=== PATIENT | female | born 1965 | race Caucasian/White ===

== ENCOUNTER 2017-06-21 04:37 | Emergency (ER) | payer OTHER ==
[~2017-06-21] VITALS: Ht 170.2 cm; Wt 73.0 kg
[2017-06-21 04:38] VITALS: TEMP 98.1
[2017-06-21 04:52] VITALS: BP 148/86; PULSE 99; RESP 18; TEMP 98.1; O2SAT 98
[2017-06-21] MEDS ORDERED: PRED5TAB PO ×2 (04:52)
[2017-06-21] MEDS ORDERED: DICL1CAP4 PO (04:52)
[2017-06-21] MEDS ORDERED: NORC5TAB PO (04:52)
[2017-06-21] MEDS ORDERED: NEUR300C PO (04:52)
[2017-06-21] MEDS ORDERED: PROMETHAZINE INJ 25 MG/ML VIAL IM ONE (05:15)
[2017-06-21] MEDS ORDERED: SODIUM CHLOR 0.9% 1000 ML INJ 1,000 ML IV ONE (05:15)
--- NOTE | 2017-06-21 05:19 | PD ---
HPI Chief Complaint: Abdominal Pain Time Seen by Provider: 04:56 Travel History International Travel<30 days: No Contact w/Intl Traveler<30days: No Traveled to known affect area: No History of Present Illness HPI The patient was seen and examined in the presence of the nurse. She complains of nausea and vomiting and diarrhea and abdominal pain. Location of pain is epigastrium. Duration of symptoms is 4 hours. She thinks that she got food poisoning. She thinks she ate some bad salmon. No fever. Symptoms severity is moderate. No alleviating factors. No exacerbating factors. She takes chronic pain medicine but denies withdrawal. Denies alcohol abuse. She has no gallbladder. PFSH Past Medical History Arthritis: Yes Diminished Hearing: No GERD: Yes Hypertension: Yes Tetanus Vaccination: Unknown Influenza Vaccination: No ?: Not Past Surgical History Abdominal Surgery: Yes (MUSCLE REMOVED) Cholecystectomy: Yes Other Surgery: Yes (ASINOVECTOMY LEFT ELBOW/KNEE) Social History Alcohol Use: No Tobacco Use: No Substance Use: No Allergies-Medications (Allergen,Severity, Reaction): Coded Allergies: No Known Allergies (Unverified , 06/21/17) Reported Meds & Prescriptions Reported Meds & Active Scripts Active Reported Neurontin (Gabapentin) 300 Mg Cap 300 Mg PO TID [place] (Hydrocodone-Acetaminophen) 5-325 mg Tab 1 Tab PO Q4H PRN Zorvolex (Diclofenac) 35 Mg Cap 75 Mg PO BID Prednisone 5 Mg Tab 7 Mg PO DAILY Prednisone 5 Mg Tab 5 Mg PO HS Review of Systems General / Constitutional: No: Fever Eyes: No: Visual changes HENT: No: Headaches Cardiovascular: No: Chest Pain or Discomfort Respiratory: No: Shortness of Breath Gastrointestinal: Positive: Nausea, Vomiting, Diarrhea, Abdominal Pain Genitourinary: No: Dysuria Musculoskeletal: Positive: Pain Skin: No Rash Neurologic: No: Weakness Psychiatric: No: Depression Endocrine: No: Polydipsia Hematologic/Lymphatic: No: Easy Bruising Physical Exam Narrative GENERAL: Well-nourished, well-developed patient with nausea . SKIN: Focused skin assessment reveals no rash and nodules. Skin is Warm and dry. HEAD: Atraumatic. Normocephalic. EYES: Pupils equal and round. No scleral icterus. No injection or drainage. ENT: No nasal bleeding or discharge. Mucous membranes pink and moist. NECK: Trachea midline. No JVD. CARDIOVASCULAR: Regular rate and rhythm. No murmur appreciated. RESPIRATORY: No accessory muscle use. Clear to auscultation. Breath sounds equal bilaterally. GASTROINTESTINAL: Abdomen soft, mild epigastric tenderness without rebound or guarding, nondistended. Hepatic and splenic margins not palpable. MUSCULOSKELETAL: No obvious deformities. No clubbing. No cyanosis. No edema. NEUROLOGICAL: Awake and alert. No obvious cranial nerve deficits. Motor grossly within normal limits. Normal speech. PSYCHIATRIC: Appropriate mood and affect; insight and judgment normal. Data Data Last Documented VS Vital Signs Date Time Temp Pulse Resp B/P (MAP) Pulse Ox O2 Delivery O2 Flow Rate FiO2 06/21/17 04:52 98.1 99 18 148/86 (106) 98 Room Air Orders Orders Iv Access Insert/Monitor (06/21/17 05:11) Complete Blood Count With Diff (06/21/17 05:11) Comprehensive Metabolic Panel (06/21/17 05:11) Lipase (06/21/17 05:11) Promethazine Inj (Phenergan Inj) (06/21/17 05:15) Sodium Chlor 0.9% 1000 Ml Inj (Ns 1000 M (06/21/17 05:15) Labs Laboratory Tests Test 06/21/17 05:12 White Blood Count 10.5 TH/MM3 Red Blood Count 4.46 MIL/MM3 Hemoglobin 10.7 GM/DL Hematocrit 35.3 % Mean Corpuscular Volume 79.1 FL Mean Corpuscular Hemoglobin 24.1 PG Mean Corpuscular Hemoglobin Concent 30.5 % Red Cell Distribution Width 18.0 % Platelet Count 334 TH/MM3 Mean Platelet Volume 8.4 FL Neutrophils (%) (Auto) 84.5 % Lymphocytes (%) (Auto) 5.5 % Monocytes (%) (Auto) 7.7 % Eosinophils (%) (Auto) 1.8 % Basophils (%) (Auto) 0.5 % Neutrophils # (Auto) 8.9 TH/MM3 Lymphocytes # (Auto) 0.6 TH/MM3 Monocytes # (Auto) 0.8 TH/MM3 Eosinophils # (Auto) 0.2 TH/MM3 Basophils # (Auto) 0.0 TH/MM3 CBC Comment DIFF FINAL Differential Comment Blood Urea Nitrogen 14 MG/DL Creatinine 0.71 MG/DL Random Glucose 91 MG/DL Total Protein 6.4 GM/DL Albumin 3.2 GM/DL Calcium Level 8.4 MG/DL Alkaline Phosphatase 77 U/L Aspartate Amino Transf (AST/SGOT) 6 U/L Alanine Aminotransferase (ALT/SGPT) 16 U/L Total Bilirubin 0.4 MG/DL Sodium Level 142 MEQ/L Potassium Level 3.5 MEQ/L Chloride Level 109 MEQ/L Carbon Dioxide Level 23.3 MEQ/L Anion Gap 10 MEQ/L Estimat Glomerular Filtration Rate 86 ML/MIN Lipase 99 U/L [facility] Medical Decision Making Medical Screen Exam Complete: Yes Emergency Medical Condition: Yes Medical Record Reviewed: Yes Differential Diagnosis Differential diagnosis includes pancreatitis, food poisoning, colitis, gastroenteritis Narrative Course I have reviewed the patient's electronic medical record. IV placed I gave her a liter of normal saline IV bolus and IM Phenergan She already had Zofran in route CBC reasonably normal metabolic profile reasonably normal LFT's are normal lipase is normal Patient has not had any active vomiting here. I prescribe some Zofran Stable for outpatient follow-up Diagnosis Primary Impression: Nausea vomiting and diarrhea Additional Impression: Epigastric abdominal pain Additional Instructions: The patient was advised to follow up with their physician and return if they worsen. I have recommended clear liquids for 24 hours, then gradually advance as tolerated. Med/Other Pt SpecificInfo: Prescription(s) given Scripts Ondansetron (Zofran) 4 Mg Tab 4 MG PO Q6HR Y for NAUSEA OR VOMITING, #12 TAB 0 Refills Prov: Mehrdad Matthews MD 06/21/17 Disposition: 01 DISCHARGE HOME Condition: Stable Mehrdad Matthews MD Jun 21, 2017 05:19
[2017-06-21 05:33] LABS: AUTOMATED NEUTROPHIL # 8.9 TH/MM3 (1.8-7.7); BASOPHIL % 0.5 % (0.0-2.0); EOSINOPHIL # 0.2 TH/MM3 (0-0.4); EOSINOPHIL % 1.8 % (0.0-4.0); HEMATOCRIT 35.3 % (35.0-46.0); HEMO FLAGS DIFF FINAL; LYMPH % 5.5 % (9.0-44.0); LYMPHOCYTE # 0.6 TH/MM3 (1.0-4.8); MEAN CELL VOLUME 79.1 FL (80.0-100.0); MEAN CORPUSCULAR HEMOGLOBIN 24.1 PG (27.0-34.0); MEAN CORPUSCULAR HGB CONC 30.5 % (32.0-36.0); MONO % 7.7 % (0.0-8.0); NEUT % 84.5 % (16.0-70.0); PLATELET COUNT 334 TH/MM3 (150-450); RED BLOOD COUNT 4.46 MIL/MM3 (4.00-5.30); WHITE BLOOD COUNT 10.5 TH/MM3 (4.0-11.0)
[2017-06-21 05:52] LABS: ALT (GPT) 16 U/L (10-53); ANION GAP 10 MEQ/L (5-15); AST (GOT) 6 U/L (15-37); BICARBONATE 23.3 MEQ/L (21.0-32.0); BLOOD UREA NITROGEN 14 MG/DL (7-18); CHLORIDE 109 MEQ/L (98-107); GLOMERULAR FILTRATION RATE 86 ML/MIN (>89); POTASSIUM 3.5 MEQ/L (3.5-5.1); SODIUM (NA) 142 MEQ/L (136-145)
[2017-06-21 05:55] LABS: ALKALINE PHOSPHATASE 77 U/L (45-117); TOTAL BILIRUBIN ADULT 0.4 MG/DL (0.2-1.0)
[2017-06-21] MEDS ORDERED: ZOFR4TAB PO (06:21)
== END 2017-06-21 08:50 | disposition home or self-care (01) ==
LOC: NEPE 04:37
DX: K21.9 Gastro-esophageal reflux disease without esophagitis (principal); R11.2 Nausea with vomiting, unspecified; R19.7 Diarrhea, unspecified; I10 Essential (primary) hypertension; M19.90 Unspecified osteoarthritis, unspecified site
CPT/HCPCS: 80053; 83690; 85025; 96360; 96372; 99284; J2550; J7030

== ENCOUNTER 2017-11-11 14:06 | Emergency (ER) | payer OTHER ==
[~2017-11-11] VITALS: Ht 170.2 cm; Wt 62.0 kg
[~2017-11-11 14:06] MED LIST: DICL1CAP4 PO; NEUR300C PO; NORC5TAB PO; PRED5TAB PO; ZOFR4TAB PO
[2017-11-11 14:25] VITALS: BP 153/70; PULSE 90; RESP 17; TEMP 98.5; O2SAT 100
[2017-11-11] MEDS ORDERED: CARV25TA (18:43)
[2017-11-11] MEDS ORDERED: CLIN300C5 PO (18:43)
[2017-11-11] MEDS ORDERED: HYDR-3288 PO (18:43)
[2017-11-11] MEDS ORDERED: CYCL10TA PO (18:43)
--- NOTE | 2017-11-11 19:07 | PD ---
HPI Chief Complaint: Skin Problem Time Seen by Provider: 18:36 Travel History International Travel<30 days: No Contact w/Intl Traveler<30days: No Traveled to known affect area: No History of Present Illness HPI 52-year-old female with a history of RA and decubitus sacral ulcer presents Says that she had an abscess in the L4-L5 region that was evaluated by Dr. Barksdale, wound care 2 months ago. Says she went to [facility] 2 days ago for evaluation and she was prescribed antibiotics and had an evaluation by infectious disease. and patient state they are rather frustrated because there are multiple physicians treating in different ways and they did not believe that they had the proper treatment. Says she had a CT of the back which revealed air but they could not give me any more information regarding this. There is a decided to come to [facility] emergency department for a second opinion and for further treatment and evaluation. Patient says that she has wound care to 3 times a week by a wound care agency and her performs wound care the rest of the time. Says she has felt mildly feverish with an occasional chill, general malaise. Says she does take prednisone daily for her rheumatoid arthritis as she had been for 35 years. PFSH Past Medical History Arthritis: Yes Diminished Hearing: No GERD: Yes Hypertension: Yes Musculoskeletal: Yes (LUMBAR L3 AND L4) Immunizations Current: No Tetanus Vaccination: < 5 Years Influenza Vaccination: No ?: Not Menopausal: No Past Surgical History Abdominal Surgery: Yes (MUSCLE REMOVED) Cholecystectomy: Yes Gynecologic Surgery: Yes (ABLATION ) Other Surgery: Yes (ASINOVECTOMY LEFT ELBOW/KNEE) Social History Alcohol Use: No Tobacco Use: No Substance Use: No Allergies-Medications (Allergen,Severity, Reaction): Coded Allergies: No Known Allergies (Unverified , 11/11/17) Reported Meds & Prescriptions Reported Meds & Active Scripts Active Reported Carvedilol 25 Mg Tab 25 Mg BID [place] (Hydrocodone-Acetaminophen) 7.5-325 mg Tab 1 Tab PO Q6H PRN Flexeril (Cyclobenzaprine HCl) 10 Mg Tab 10 Mg PO TID Clindamycin (Clindamycin HCl) 300 Mg Cap 300 Mg PO TID Neurontin (Gabapentin) 300 Mg Cap 300 Mg PO TID Zorvolex (Diclofenac) 35 Mg Cap 75 Mg PO BID Prednisone 5 Mg Tab 7 Mg PO DAILY Prednisone 5 Mg Tab 5 Mg PO HS Review of Systems Except as stated in HPI: all other systems reviewed are Neg Physical Exam Narrative GENERAL: Well-developed, well-nourished in no apparent distress SKIN: Focused skin assessment warm/dry. Sacral ulcer-5-6 cm x 2 cm, tracking deep into the sacrum. HEAD: Atraumatic. Normocephalic. EYES: Pupils equal and round. No scleral icterus. No injection or drainage. ENT: No nasal bleeding or discharge. Mucous membranes pink and moist. NECK: Trachea midline. No JVD. CARDIOVASCULAR: Regular rate and rhythm. No murmur appreciated. RESPIRATORY: No accessory muscle use. Clear to auscultation. Breath sounds equal bilaterally. GASTROINTESTINAL: Abdomen soft, non-tender, nondistended. Hepatic and splenic margins not palpable. MUSCULOSKELETAL: No obvious deformities. No clubbing. No cyanosis. No edema. Bilateral below the knee amputations which is chronic. NEUROLOGICAL: Awake and alert. No obvious cranial nerve deficits. Motor grossly within normal limits. Normal speech. PSYCHIATRIC: Appropriate mood and affect; insight and judgment normal. Data Data Last Documented VS Vital Signs Date Time Temp Pulse Resp B/P (MAP) Pulse Ox O2 Delivery O2 Flow Rate FiO2 11/12/17 00:09 11/11/17 22:16 97 20 98 Room Air 11/11/17 14:25 98.5 Orders Orders Sepsis Workup Initiated (11/11/17 ) Complete Blood Count With Diff (11/11/17 19:05) Comprehensive Metabolic Panel (11/11/17 19:05) Prothrombin Time / Inr (Pt) (11/11/17 19:05) Act Partial Throm Time (Ptt) (11/11/17 19:05) Lactic Acid Sepsis Protocol (11/11/17 19:05) Blood Culture (11/11/17 19:05) Chest, Pa & Lat (11/11/17 19:05) Blood Glucose (11/11/17 19:05) Ecg Monitoring (11/11/17 19:05) Iv Access Insert/Monitor (11/11/17 19:05) Oximetry (11/11/17 19:05) Oxygen Administration (11/11/17 19:05) Morphine Inj (Morphine Inj) (11/11/17 20:00) Mri L Spine W&W/O Contrast (11/11/17 ) Mri T Spine W & W/O Contrast (11/11/17 ) Mri Pelvis W&W/O Contrast (11/11/17 ) Gadodiamide Pf Inj (Omniscan Pf Inj) (11/11/17 21:28) Vancomycin Inj (Vancomycin Inj) (11/11/17 23:30) Piperacil-Tazo 3.375 Gm Premix (Zosyn 3. (11/11/17 23:30) Ed Discharge Order (11/11/17 23:48) Labs Laboratory Tests Test 11/11/17 19:40 White Blood Count 14.4 TH/MM3 Red Blood Count 3.33 MIL/MM3 Hemoglobin 8.6 GM/DL Hematocrit 25.7 % Mean Corpuscular Volume 77.1 FL Mean Corpuscular Hemoglobin 25.9 PG Mean Corpuscular Hemoglobin Concent 33.5 % Red Cell Distribution Width 20.4 % Platelet Count 377 TH/MM3 Mean Platelet Volume 7.3 FL Neutrophils (%) (Auto) 77.3 % Lymphocytes (%) (Auto) 14.4 % Monocytes (%) (Auto) 5.5 % Eosinophils (%) (Auto) 1.7 % Basophils (%) (Auto) 1.1 % Neutrophils # (Auto) 11.1 TH/MM3 Lymphocytes # (Auto) 2.1 TH/MM3 Monocytes # (Auto) 0.8 TH/MM3 Eosinophils # (Auto) 0.2 TH/MM3 Basophils # (Auto) 0.2 TH/MM3 CBC Comment DIFF FINAL Differential Comment Prothrombin Time 10.3 SEC Prothromb Time International Ratio 1.0 RATIO Activated Partial Thromboplast Time 25.6 SEC Blood Urea Nitrogen 18 MG/DL Creatinine 0.73 MG/DL Random Glucose 96 MG/DL Total Protein 7.0 GM/DL Albumin 2.7 GM/DL Calcium Level 8.8 MG/DL Alkaline Phosphatase 80 U/L Aspartate Amino Transf (AST/SGOT) 19 U/L Alanine Aminotransferase (ALT/SGPT) 17 U/L Total Bilirubin 0.1 MG/DL Sodium Level 141 MEQ/L Potassium Level 4.3 MEQ/L Chloride Level 106 MEQ/L Carbon Dioxide Level 26.5 MEQ/L Anion Gap 9 MEQ/L Estimat Glomerular Filtration Rate 84 ML/MIN Lactic Acid Level 1.1 mmol/L MDM Medical Decision Making Medical Screen Exam Complete: Yes Emergency Medical Condition: Yes Differential Diagnosis Osteomyelitis, abscess, decubitus ulcer, cellulitis, sepsis Narrative Course 52-year-old female with a history of RA and decubitus sacral ulcer presents Says that she had an abscess in the L4-L5 region that was evaluated by Dr. Barksdale 2 months ago. Says she went to [facility] 2 days ago for evaluation and she was prescribed antibiotics and had an evaluation by infectious disease. and patient state they are rather frustrated because there are multiple physicians treating in different ways and they did not believe that they had the proper treatment. Says she had a CT of the back which revealed air but they could not give me any more information regarding this. There is a decided to come to [facility] emergency department for a second opinion and for further treatment and evaluation. Patient says that she has wound care to 3 times a week by a wound care agency and her performs wound care the rest of the time. Says she has felt mildly feverish with an occasional chill, general malaise but is unsure if this is a RA flare. Says she does take prednisone daily for her rheumatoid arthritis as she had been for 35 years. She otherwise feels well. CBC & BMP Diagram 11/11/17 19:40 Total Protein 7.0, Albumin 2.7 L, Calcium Level 8.8, Alkaline Phosphatase 80, Aspartate Amino Transf (AST/SGOT) 19, Alanine Aminotransferase (ALT/SGPT) 17, Total Bilirubin 0.1 L Patient has leukocytosis at 14.4 however, she does take prednisone daily. H/H8 0.6/25.7. H/H from November 08 at [facility] 8.4/28.5. It appears that her anemia is stable at this point. Prior to the MRI results, Dr. Bowie, radiologist called to recommend a CT of the spine. After reviewing records from [facility] from November 07 , it appears the patient had a CT abdomen pelvis with contrast. This states "sacral decubitus ulcer with phlegmon formation just superior to the open wound at the level C1 and coccyx. No discrete collection to suggest abscess. No erosive changes to suggest osteomyelitis. Gas extends throughout subcutaneous Adipose tissue of the buttocks, posterior pelvic pelvis and ventral abdomen up to the level of T12. Large hiatal hernia. Constipation. Stable burst fracture of L3 and compression fracture of L4." In addition, patient was evaluated by infectious disease. Patient was initiated on vancomycin, Flagyl, Cipro. It appears that patient was discharged on November 09 with home health care. Initially ordered vancomycin and Zosyn for osteomyelitis. I discussed this case with the hospitalist, Dr. Camacho. After a thorough review of the notes and discussion, she does not believe that the patient would not have any other treatment different than what the previous infectious disease physicians mentioned. She reviewed the wound care notes as well which demonstrates and suggests early osteomyelitis. I do believe that this patient is stable. She has great follow-up with wound care and has care at home with her . She was apparently discharged on minocycline and Cipro and has only taken 2 days of these medications. Patient be discharged and advised to take medications as previously prescribed. Advised to return to the emergency department worsening or persistent symptoms. Pt understood and agreed to the plan. She understands that she should return if her symptoms worsened. Diagnosis Primary Impression: Osteomyelitis Qualified Codes: M86.28 - Subacute osteomyelitis, other site Admitting Information Admitting Physician Requests: Admit Referrals: [facility] Primary Care Physician Additional Instructions: Continue minocycline and Cipro as previously prescribed. Follow-up with a information security specialist and primary care physician. If her symptoms persist or worsen return to the emergency room. Disposition: 01 DISCHARGE HOME Condition: Stable Tisha Caro Nov 11, 2017 19:07
[2017-11-11 19:40] VITALS: BP 119/58; PULSE 87; RESP 15; O2SAT 98
[2017-11-11 19:42] VITALS: RESP 18; O2SAT 98
--- NOTE | 2017-11-11 19:44 | RADRPT ---
EXAM DATE/TIME: 11/11/2017 19:25 [facility] COMPARISON: No previous studies available for comparison. INDICATIONS : Lower chest/back pain. MEDICAL HISTORY : Hypertension. SURGICAL HISTORY : None. ENCOUNTER: Initial ACUITY: 2 days PAIN SCORE: 2/10 LOCATION: Bilateral chest FINDINGS: Minimal parenchymal changes left base. Right lung is clear. Mild compensated cardiomegaly. Degener ative changes about both shoulders CONCLUSION: Minimal productive changes left base, nonspecific Michael Bowie MD FACR on November 11, 2017 at 19:41 Board Certified Radiologist. This report was verified electronically.
[2017-11-11 19:55] LABS: AUTOMATED NEUTROPHIL # 11.1 TH/MM3 (1.8-7.7); BASOPHIL # 0.2 TH/MM3 (0-0.2); BASOPHIL % 1.1 % (0.0-2.0); EOSINOPHIL # 0.2 TH/MM3 (0-0.4); EOSINOPHIL % 1.7 % (0.0-4.0); HEMATOCRIT 25.7 % (35.0-46.0); HEMOGLOBIN 8.6 GM/DL (11.6-15.3); LYMPH % 14.4 % (9.0-44.0); LYMPHOCYTE # 2.1 TH/MM3 (1.0-4.8); MEAN CELL VOLUME 77.1 FL (80.0-100.0); MEAN CORPUSCULAR HEMOGLOBIN 25.9 PG (27.0-34.0); MEAN CORPUSCULAR HGB CONC 33.5 % (32.0-36.0); MEAN PLATELET VOLUME 7.3 FL (7.0-11.0); MONO % 5.5 % (0.0-8.0); MONOCYTE # 0.8 TH/MM3 (0-0.9); NEUT % 77.3 % (16.0-70.0); PLATELET COUNT 377 TH/MM3 (150-450); RED BLOOD COUNT 3.33 MIL/MM3 (4.00-5.30); RED CELL DISTRIBUTION WIDTH 20.4 % (11.6-17.2); WHITE BLOOD COUNT 14.4 TH/MM3 (4.0-11.0)
[2017-11-11] MEDS ORDERED: MORPHINE SULFATE 4 MG/ML INJ IV PUSH ONE (20:00)
[2017-11-11 20:14] LABS: PROTHROMBIN TIME - PATIENT 10.3 SEC (9.8-11.6)
[2017-11-11 20:17] LABS: ALT (GPT) 17 U/L (10-53)
[2017-11-11 20:19] LABS: ALKALINE PHOSPHATASE 80 U/L (45-117); TOTAL BILIRUBIN ADULT 0.1 MG/DL (0.2-1.0)
[2017-11-11 20:31] LABS: ALBUMIN 2.7 GM/DL (3.4-5.0); AST (GOT) 19 U/L (15-37); BICARBONATE 26.5 MEQ/L (21.0-32.0); BLOOD UREA NITROGEN 18 MG/DL (7-18); CALCIUM 8.8 MG/DL (8.5-10.1); CHLORIDE 106 MEQ/L (98-107); CREATININE 0.73 MG/DL (0.50-1.00); GLOMERULAR FILTRATION RATE 84 ML/MIN (>89); GLUCOSE,RANDOM 96 MG/DL (74-106); SODIUM (NA) 141 MEQ/L (136-145)
[2017-11-11] MEDS ORDERED: GADODIAMIDE PF 287 MG/ML 10 ML VIAL (for RAD MRI) IVCONTRAST ONE (21:28)
--- NOTE | 2017-11-11 21:55 | RADRPT ---
EXAM DATE/TIME: 11/11/2017 20:40 [facility] COMPARISON: CHEST PA & LAT, November 11, 2017, 19:25. INDICATIONS : Osteomyelitis. CONTRAST: 10 cc Omniscan (gadodiamide) IV MEDICAL HISTORY : Hypertension. Osteomyelitis. SURGICAL HISTORY : Fusion, cervical. Cholecystectomy. Bilateral below the knee amputation. ENCOUNTER: Initial ACUITY: 1 month PAIN SCORE: 5/10 LOCATION: Par[facility] TECHNIQUE: Multiplanar multisequence MRI of the thoracic spine was performed. FINDINGS: Patient has had previous cervical spine surgery. Only scalloped there appear to be significant cervi kelly spinal stenosis in the mid cervical spine. There is no evidence for myelitis in the thoracic spi ne. There is abnormal signal in the subcutaneous tissues of the back extending up to at least T8 that cou ld be subcutaneous air. CT scan would be would show this to better advantage. As the large sacral decubitus. Rather lumbar spine and pelvis are pending. CONCLUSION: Problem subcutaneous emphysema as described above. There is not myelitis in the thor acic spine. CT is suggested from approximately the 8 to the tip of S 3. Michael Bowie MD FACR on November 11, 2017 at 21:46 Board Certified Radiologist. This report was verified electronically.
--- NOTE | 2017-11-11 22:05 | RADRPT ---
EXAM DATE/TIME: 11/11/2017 20:40 [facility] COMPARISON: No previous studies available for comparison. INDICATIONS : Osteomyelitis. CONTRAST: 10 cc Omniscan (gadodiamide) IV MEDICAL HISTORY : Osteomyelitis. Hypertension. SURGICAL HISTORY : Fusion, cervical. Cholecystectomy. Bilateral below the knee amputation. ENCOUNTER: Initial ACUITY: 1 month PAIN SCORE: 5/10 LOCATION: Paraspinal TECHNIQUE: Multiplanar multisequence MRI of the lumbar spine was performed with and without contrast. FINDINGS: The L3 and L4 vertebral body is abnormal with partial collapse of L3 and L4. I do not see evidence f or osteomyelitis. The remainder the marrow visualized is homogeneous. There is subcutaneous emphysema extending up the subcutaneous tissues higher than T12. CONCLUSION: Subcutaneous air as described above. CT scan is suggested. Fragmentation and collapse of L3-L4 probably posttraumatic. No prior studies for comparison. Michael Bowie MD FACR on November 11, 2017 at 22:00 Board Certified Radiologist. This report was verified electronically.
[2017-11-11 22:16] VITALS: BP 131/97; PULSE 97; RESP 20; O2SAT 98
--- NOTE | 2017-11-11 22:20 | RADRPT ---
EXAM DATE/TIME: 11/11/2017 20:40 [facility] COMPARISON: No previous studies available for comparison. INDICATIONS : Osteomyelitis. CONTRAST: 10 cc Omniscan (gadodiamide) IV MEDICAL HISTORY : Osteomyelitis. Hypertension. SURGICAL HISTORY : Fusion, cervical. Cholecystectomy. Bilateral below the knee amputation. ENCOUNTER: Initial ACUITY: 1 month PAIN SCORE: 5/10 LOCATION: Paraspinal TECHNIQUE: Multiplanar, multisequence magnetic resonance imaging of the pelvis was performed. FINDINGS: Large sacral decubitus ulcer at the tip of the sacrum and osteomyelitis sacral segment.. Subcutaneou s emphysema extends extending up the subcutaneous tissues. . Most of the inflammatory changes appear be confined to the subcutaneous tissues. There is no free fluid in the pelvis. There is deep pelvic or retroperitoneal abscess. CONCLUSION: Large sacral decubitus ulcer presumed osteomyelitis tip of the sacrum Subcutaneous emphysema as above Michael Bowie MD FACR on November 11, 2017 at 22:14 Board Certified Radiologist. This report was verified electronically.
[2017-11-11] MEDS ORDERED: VANCOMYCIN INJ 1,500 MG in SODIUM CHLORID 0.9% 500 ML INJ 500 ML IV ONE (23:30)
[2017-11-11] MEDS ORDERED: PIPERACIL-TAZO 3.375 GM PREMIX 50 ML IV ONE (23:30)
== END 2017-11-12 00:13 | disposition home or self-care (01) ==
LOC: NEPC 14:06
DX: M86.28 Subacute osteomyelitis, other site (principal); L89.159 Pressure ulcer of sacral region, unspecified stage; M06.9 Rheumatoid arthritis, unspecified; I10 Essential (primary) hypertension; Z79.2 Long term (current) use of antibiotics; Z79.899 Other long term (current) drug therapy
CPT/HCPCS: 71046; 72157; 72158; 72197; 80053; 83605; 85025; 85610; 85730; 87040; 96374; 99285; A9579; J2270